=== PATIENT | male | born 1970 | race Caucasian/White ===

== ENCOUNTER 2018-06-04 08:31 | Emergency (ER) | payer SELFPAY ==
[~2018-06-04] VITALS: Ht 180.3 cm; Wt 64.9 kg
[2018-06-04 08:32] VITALS: BP 112/91
--- NOTE | 2018-06-04 08:40 | NUR ---
PT AMB TO BED 7. REPORT GIVEN TO TABBY RUIZ. NOTIFIED DR RECIO.
--- NOTE | 2018-06-04 08:49 | NUR ---
47 yo m bib self w/ c/o left upper back pain & redness. pt reports that he was bit by a bug this am. pt presents w/ a small area of redness to the left upper shoulder. pt reports nausea, no vomiting. pt reports joint pain. pt aaox4, gcs 15, cms intact. pt appears to be in severe pain. rr even and unlabored, lungs bl clear. abd soft, non-tender. ambulatory w/ steady gait. er md notified. pt needs met. safety precautions in place, will continue to monitor.
--- NOTE | 2018-06-04 08:50 | NUR ---
Patient being evaluated by physician at bedside.
[2018-06-04] MEDS ORDERED: KETOROLAC 30 MG/ML VIAL IVP ONE (08:55)
[2018-06-04] MEDS ORDERED: NACL 0.9% 1,000 ML IV ONE (08:55)
--- NOTE | 2018-06-04 09:18 | NUR ---
PT UNABLE TO PROVIDE URINE AT THIS TIME. ER MD NOTIFIED. PT IV FLUIDS STARTED, GIVEN ORAL HYDRATION. WILL CONITNUE TO MONITOR.
[2018-06-04 09:34] LABS: ANION GAP 8.9 (8-16); CARBON DIOXIDE 31.3 mmol/L (21-32); CREATININE 0.9 mg/dL (0.7-1.3); POTASSIUM 4.2 mmol/L (3.5-5.1)
[2018-06-04 09:40] LABS: ALBUMIN 4.5 g/dL (3.4-5.0); TOTAL BILIRUBIN 0.8 mg/dL (0.0-1.0)
[2018-06-04 09:51] LABS: BASOPHILS % (AUTO) 0.4 % (0.0-2.0); EOSINOPHILS % (AUTO) 0.5 % (0.0-4.0); HEMATOCRIT 43.9 % (36-52); HEMOGLOBIN 14.6 g/dL (12.0-18.0); LYMPHOCYTES # (AUTO) 1.2 K/uL (2.0-11.5); LYMPHOCYTES % (AUTO) 16.1 % (20.5-51.1); MEAN CORPUSCULAR HEMOGLOBIN 29 pg (27-31); MEAN CORPUSCULAR HGB CONC 33 g/dL (33-37); MEAN CORPUSCULAR VOLUME 87.1 fL (80-94); MONOCYTES # (AUTO) 0.7 K/uL (0.8-1.0); MONOCYTES % (AUTO) 8.9 % (1.7-9.3); NEUTROPHILS # (AUTO) 5.7 K/uL (1.8-7.7); NEUTROPHILS % (AUTO) 74.1 % (42.2-75.2); PLATELET COUNT (AUTO) 228 K/uL (140-450); RED BLOOD CELL COUNT(AUTO) 5.04 MIL/uL (4.20-6.10); RED CELL DISTRIBUTION WIDTH 12.4 % (11.6-13.7); WHITE BLOOD COUNT (AUTO) 7.8 K/uL (4.8-10.8)
[2018-06-04] MEDS ORDERED: MORPHINE SULFATE 4 MG/ML SYR IVP ONE (09:55)
--- NOTE | 2018-06-04 10:07 | NUR ---
PT ASLEEP AT THIS TIME ON [facility] W/ VSS, RR EVEN AND UNLABORED. SAFETY PRECAUTIONS IN PLACE. PT NEEDS MET. DTR AT BEDSIDE. WILL CONTINUE TO MONITOR.
--- NOTE | 2018-06-04 11:00 | NUR ---
pt resting comfortably awaiting d/c at this time. pt needs met, vss, safety precautions in place. will continue to monitor.
[2018-06-04 11:34] VITALS: BP 119/79
--- NOTE | 2018-06-04 11:35 | NUR ---
Patient discharged with v/s stable. Written and verbal after care instructions given and explained. Patient verbalized understanding. Ambulatory with steady gait. All questions addressed prior to discharge. Advised to follow up with PMD.
[2018-06-04 12:12] LABS: APPEARANCE,URINE CLEAR (CLEAR); BILIRUBIN,URINE NEGATIVE (NEGATIVE); BLOOD, URINE NEGATIVE (NEGATIVE); COLOR,URINE YELLOW (YELLOW); LEUKOCYTE ESTERASE ,URINE NEGATIVE (NEGATIVE); NITRITE, URINE NEGATIVE (NEGATIVE); UGLUCOSE NEGATIVE (NEGATIVE)
== END 2018-06-04 11:35 | disposition home or self-care (01) ==
LOC: MED 08:31
DX: T63.331A Toxic effect of venom of brown recluse spider, accidental (unintentional), initial encounter (principal); Y92.89 Other specified places as the place of occurrence of the external cause
CPT/HCPCS: 36415; 80053; 81003; 82150; 83690; 85025; 96361; 96374; 96375; 99284; J1885; J2270